=== PATIENT | male | born 1935 | race Caucasian/White ===

== ENCOUNTER 2018-11-07 17:53 | Outpatient (CLI) | payer MEDICARE, BC | END 2018-11-07 17:54 | disposition critical access hospital (66) | LOC: EMS 17:53 | PROVIDERS: ATTEND Surgery | DX: R53.81 Other malaise (principal); R53.83 Other fatigue ==

== ENCOUNTER 2018-11-07 18:30 | Emergency (ER) | payer MEDICARE, BC ==
[2018-11-07 19:29] LABS: BASOPHILS % (AUTO) 0.6 %; EOSINOPHILS # (AUTO) 0.2 10^3/uL (0.0-0.7); EOSINOPHILS % (AUTO) 2.2 %; HGB - HEMOGLOBIN 13.1 g/dL (14.0-18.0); LYMPHOCYTES # (AUTO) 1.6 10^3/uL (1.5-3.5); LYMPHOCYTES % (AUTO) 24.1 %; MEAN CORPUSCULAR HEMOGLOBIN 35.2 pg (27.0-31.0); MEAN CORPUSCULAR VOLUME 103.5 fL (80.0-94.0); MONOCYTES # (AUTO) 0.5 10^3/uL (0.0-1.0); MONOCYTES % (AUTO) 6.7 %; NEUTROPHILS # (AUTO) 4.4 10^3/uL (1.5-6.6); NEUTROPHILS % (AUTO) 66.1 %; PLT - PLATELET COUNT 186 10^3/uL (130-450); RED BLOOD COUNT 3.72 10^6/uL (4.70-6.10); RED CELL DISTRIBUTION WIDTH 14.2 % (12.0-15.0); WHITE BLOOD COUNT 6.7 x10^3/uL (4.8-10.8)
[2018-11-07 19:33] LABS: ALBUMIN 3.8 g/dL (3.2-5.5); ALBUMIN/GLOBULIN RATIO 1.3 (1.0-2.2); BILIRUBIN,TOTAL 0.4 mg/dL (0.2-1.0); CALCIUM 9.6 mg/dL (8.5-10.3); CREATININE 0.9 mg/dL (0.6-1.2); TOTAL PROTEIN 6.7 g/dL (6.7-8.2)
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
[2018-11-07 20:45] VITALS: BP 130/92
== END 2018-11-07 20:59 | disposition home or self-care (01) ==
LOC: ED 18:30
DX: R11.0 Nausea (principal); R61 Generalized hyperhidrosis
CPT/HCPCS: 36415; 80053; 80185; 83690; 84484; 85025; 93005; 99282; 99283